=== PATIENT | female | born 2000 | race Caucasian/White ===

== ENCOUNTER 2019-04-16 19:23 | Emergency (ER) | payer BC ==
--- OUTSIDE RECORDS SUMMARY | 2019-04-16 20:17 | XMS REPORT | Continuity of Care Document ---
:2000 Author Organization [facility] Address [address] [facility] [address] [place] [address] Phone Care Team Providers Name Role Phone Regard Allison CHOWDHURY Unavailable Unavailable Allergies, Adverse Reactions, Alerts Substance Reaction Status No Known Allergies Active Medications Medication Instructions Dosage Effective Status Comments Dates (start - stop) Sarah (28) 3 1 tab by oral - Active !! Check mg-0.03 mg route every day [employer]ize tablet Pricing: BIN #: [id number] Group #: [id number] Card #: [id number] PCN:FW Sarah (28) 3 1 tab by oral - No Longer !! Check mg-0.03 mg route every day Active [facility] tablet Pricing: BIN #: [id number] Group #: [id number] Card #: [id number] PCN:FW Sarah (28) 3 1 tab by oral - No Longer !! Check mg-0.03 mg route every day Active [facility] tablet Pricing: BIN #: [id number] Group #: [id number] Card #: [id number] PCN:FW Sarah (28) 3 1 tab by oral - No Longer !! Check mg-0.03 mg route every day Active [facility] tablet Pricing: BIN #: [id number] Group #: [id number] Card #: [id number] PCN:FW EDUARDO (28) 3 take 1 tablet by 1.00 tablet - No Longer !! Check mg-0.02 mg oral route every Active FamilyWize tablet day Pricing: [employer] #: [id number] Group #: [id number] Card #: [id number] PCN:FW Provera 10 mg 1 tablet by Oral - No Longer do not fill tablet route every day Active unless pt calls for r 10 days if for the no period for 6 medication wks, period lasts > 10 days, period comes again in <21 days Problems Condition Effective Dates (start - Clinical Status Comments stop) Encntr for physician general practice exam (general) (routine) w/o abn findings Encounter for screening for infections with a predominantly sexual mode of transmission Oral contraceptive pill surveillance Excessive and frequent menstruation with regular cycle Underweight Procedures Procedure Date PREV VISIT EST AGE 18-39 Results Test Name Date and Time Measure Units Reference Range Abnormal Flag Status Comments No information Advance Directives Directive Yes / No Effective Date File Name No information Encounters Encounter Practice Location Reason(s) Diagnoses Date Provider Providers Description For Visit Copied on Encounter PREV VISIT [facility] for physician general practice Regard Referring EST AGE [facility] exam (general) 2-202 Allison. 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 White [place] pill tel: [place], tel: surveillanceExces [phone] [place], [address]. [id number] sive and frequent tel:4 menstruation with [id number] regular cycleUnderweight [facility]- Regard [facility] 1-201 Allison. Health Womens Flooring Installer 9 [address] [facility], At [address], [facility] [place] [address] [address], , [place], [place], [address], [place], [address], [place]. [place] tel: tel: [phone] [facility] Jan- Reg[facility] 1-201 Allison. Health Womens Flooring Installer 9 [facility], At [address], [address], , [place], [place], [address], [place], [address], [place]. [place] tel: tel:[phone] [facility] Nov-0 Regard [facility] 7-201 Allison. Health Womens Flooring Installer 9 [address] [facility], At [address], [address], , [place], [place], [address], [place], [address], [place]. [place] tel: tel:[phone] [facility] Jesu-0 Regard [facility] 4-201 Allison. Health Womens Flooring Installer 9 [address] [facility], At [address], [address], , [place], [place], [address], [place], [address], [place]. [place] tel: tel:[phone] [facility] Humberto-0 Regard [facility] 3-201 Allison. Health Womens Flooring Installer 9 [address] [facility], At [address], [address], , [place], [place], [address], [place], [address], [place]. [place] tel: tel:[phone] [facility] Sep-2 Regard [facility] 8-201 Allison. Health Womens Flooring Installer 7 [address] [facility], At [address], [address], , [place], [place], [address], [place], [address], [place]. [place] tel: tel:[phone] Family History Family Member Diagnosis Age At Onset No information Immunizations Vaccine Date Status Comments No information Payers Payer name Insurance type Covered democrat ID Authorization(s) No information Social History Type Description Quantity Date Captured Comments Sex Female Vital Signs Date / Height Weight BMI Pulse Blood Temperature Respiratory Body Head BMI Pulse Inhaled Time: Rate Pressure Rate Surface Circumference percentile [place] No information Chief Complaint And Reason For Visit No information Reason For Referral Reason For Referral No information Plan Of Treatment Date Type Action Status No information History Of Present Illness Encounter Date Complaint History Of Present Illness No information Functional Status Date Functional Assessment No information Medications Administered Medication Instructions Dosage Effective Dates (start - stop) Status Comments No information Instructions Date Instruction Additional Information Her ocp began Mar 2017. Related to Oral contraceptive pill surveillance Assessments Type Assessment Date No information Goals Health Concern Goal Type Priority Status Date No information Medical Equipment Description Device Ashby Device Identifier Effective Dates (start - stop ) Status No information Mental Status Date Cognitive Assessment No information Health Concerns Observation Date No information Concern Status Date No information
--- OUTSIDE RECORDS SUMMARY | 2019-04-16 20:17 | XMS REPORT | Continuity of Care Document ---
:2000 Author Organization [facility] Address [address] [facility] [address] [place] [address] Phone Care Team Providers Name Role Phone Regard Allison CHOWDHURY Unavailable Unavailable Allergies, Adverse Reactions, Alerts Substance Reaction Status No Known Allergies Active Medications Medication Instructions Dosage Effective Status Comments Dates (start - stop) Sarah (28) 3 1 tab by oral - Active !! Check mg-0.03 mg route every day [facility]ize tablet Pricing: BIN #: [id number] Group #: [id number] Card #: [id number] PCN:FW Sarah (28) 3 1 tab by oral - No Longer !! Check mg-0.03 mg route every day Active [facility] tablet Pricing: BIN #: [id number] Group #: [id number] Card #: [id number] PCN:FW Sarah (28) 3 1 tab by oral - No Longer !! Check mg-0.03 mg route every day Active [facility] tablet Pricing: BIN #: [id number] Group #: [id number] Card #: [id number] PCN:FW Sarah (28) 3 1 tab by oral - No Longer !! Check mg-0.03 mg route every day Active [facility] tablet Pricing: BIN #: [id number] Group #: [id number] Card #: [id number] PCN:FW EDUARDO (28) 3 take 1 tablet by 1.00 tablet - No Longer !! 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 [place] pill tel: [place], tel: surveillanceExces [phone] [place], [address]. [phone] sive and frequent tel:4 menstruation with [phone] regular cycleUnderweight [facility]- [facility] 1-201 Allison. Health Womens Bakery Associate 9 [address] [facility], At [address], [facility] [address], , [place], [place], [address], [place], [address], [place]. [place] tel: tel: [phone] [facility]- [facility] 1-201 Allison. Health Womens Bakery Associate 9 [address] [facility], At [address], [address], , [place], [place], [address], [place], [address], [place]. [place] tel: tel:[phone] [facility] Jesu-0 Regard [facility] 4-201 Allison. Health Womens Bakery Associate 9 [address] [facility], At [address], [facility] [address], , [place], [place], [address], [place], [address], [place]. [place] tel: tel:[phone] [facility] Humberto-0 Regard [facility] 3-201 Allison. Health Womens Bakery Associate 9 [address] [facility], At [address], [address], , [place], [place], [address], [place], [address], [place]. [place] tel: tel:[phone] [facility] Sep-2 Regard [facility] 8-201 Allison. Health Womens Bakery Associate 7 [address] [facility], At [address], , [place], [place], [address], [place], [address], [place]. [place] tel: tel:[phone] Family History Family Member Diagnosis Age At Onset No information Immunizations Vaccine Date Status Comments No information Payers Payer name Insurance type Covered republican ID Authorization(s) No information Social History Type [...] Date No information Medical Equipment Description Device [place] Device Identifier Effective Dates (start - stop ) Status No information Mental Status Date Cognitive Assessment No information Health Concerns Observation Date No information Concern Status Date No information
--- NOTE | 2019-04-16 20:30 | UC ---
Throat Pain/Nasal Ty HPI - HPI Summary HPI Summary: 2 weeks ago seen at [facility]. Negative strep and flu but given cephalexin and did feel better. Last 3 days worsening sore throat with neck swelling. - History of Current Complaint Stated Complaint: SORE THROAT Time Seen by Provider: 04/16/19 20:20 Hx Obtained From: Patient Onset/Duration: Sudden Onset, Lasting Weeks - 2, Worse Since - last 3 days Severity: Moderate Cough: None Associated Signs & Symptoms: Positive: Dysphagia - Epiglottits Risk Factors Epiglottis Risk Factors: Negative - Allergies/Home Medications Allergies/Adverse Reactions: Allergies Allergy/AdvReac Type Severity Reaction Status Date / Time No Known Allergies Allergy Verified 04/16/19 20:31 Home Medications: Home Medications Control 1 tab PO DAILY 04/16/19 [History Confirmed 04/16/19] PMH/Surg Hx/FS Hx/Imm Hx Previously Healthy: Yes - Family History Known Family History: Negative: Cardiac Disease - Social History Occupation: Student Lives: Dormitory/Roommates Review of Systems All Other Systems Reviewed And Are Negative: Yes ENT: Positive: Sore Throat Physical Exam Triage Information Reviewed: Yes Appearance: No Pain Distress, Well-Nourished, Ill-Appearing - mild Vital Signs Reviewed: Yes Eyes: Positive: Conjunctiva Clear ENT: Positive: Pharyngeal erythema, TMs normal, Tonsillar swelling, Tonsillar exudate Neck: Positive: Tenderness @ - bilateral anterior cervical, Enlarged Nodes @ - bilateral anterior cervical Respiratory Exam: Normal Cardiovascular Exam: Normal Abdominal Exam: Normal Musculoskeletal Exam: Normal Neurological Exam: Normal Psychological Exam: Normal Skin Exam: Normal Throat Pain/Nasal Course/Dx - Differential Dx/Diagnosis Differential Diagnosis/HQI/PQRI: Reagan's Angina, Peritonsillar Abscess, Pharyngitis, Tonsillitis Provider Diagnosis: Acute pharyngitis Discharge ED - Sign-Out/Discharge Documenting (check all that apply): Patient Departure All imaging exams completed and their final reports reviewed: No Studies - Discharge Plan Condition: Stable Disposition: HOME Patient Education Materials: Pharyngitis (ED) Referrals: No Primary Care Phys,NOPCP [Primary Care Provider] - - Billing Disposition and Condition Condition: STABLE Disposition: Home
[2019-04-16 20:31] VITALS: BP 122/74
[2019-04-17 10:19] LABS: ABS Basophils 0.1 10^3/ul (0-0.2); ABS Lymphocytes 0.8 10^3/ul (1.0-4.8); ABS Monocytes 1.2 10^3/ul (0-0.8); Hematocrit 35 % (35-47); Hemoglobin 11.7 g/dL (12.0-16.0); Lymphocyte % 3.8 %; Mean Corpuscular HGB Conc 33 g/dL (31-36); Mean Corpuscular Hemoglobin 29 pg (27-31); Mean Corpuscular Volume 86 fL (80-97); Mean Platelet Volume 8.3 fL (7.4-10.4); Platelet Count 253 10^3/uL (150-450); Red Blood Count 4.12 10^6 /uL (3.70-4.87); Red Cell Distribution Width 14 % (10-15); White Blood Count 22.1 10^3/uL (3.5-10.8)
--- NOTE | 2019-04-17 15:04 | UC ---
- Progress Note Progress Note: CBC with 22.1 WBC with neutrophils. Bond negative. Please call pt. If still febrile and feels worse or having trouble handling secretions - recommend going to the ED. If feeling about the same - recommend starting Augmentin. Needs recheck of CBC when feeling better (about a week preferably). Course/Dx - Diagnoses Provider Diagnoses: Acute pharyngitis Discharge ED - Sign-Out/Discharge Documenting (check all that apply): Post-Discharge Follow Up All imaging exams completed and their final reports reviewed: No Studies - Discharge Plan Condition: Stable Disposition: HOME Patient Education Materials: Pharyngitis (ED) Referrals: No Primary Care Phys,NOPCP [Primary Care Provider] - - Billing Disposition and Condition Condition: STABLE Disposition: Home
== END 2019-04-16 21:12 | disposition home or self-care (01) ==
LOC: UCEAST 19:23
DX: J02.9 Acute pharyngitis, unspecified (principal)
CPT/HCPCS: 36415; 85025; 86308; 87651; 99201; G0463

== ENCOUNTER 2019-04-17 16:28 | Emergency (ER) | payer BC ==
--- NOTE | 2019-04-17 16:41 | ED ---
Throat Pain/Nasal Congestion - HPI Summary HPI Summary: Patient complains of sore throat, MORAN, fever up to 101, decreased by mouth intake 1 day. History of same symptoms 2 weeks ago which completely improved after antibiotics. Patient stopped antibiotics 3 days ago, when symptoms returned 2 days later. Denies rash, neck stiffness, cough, CP, SOB, N/V/V abdominal pain, change in urine, change in BM. Medical history is none. - History of Current Complaint Chief Complaint: EDThroatPain Hx Obtained From: Patient Onset/Duration: Gradual Onset, Lasting Days Severity: Moderate Associated Signs And Symptoms: Positive: Dysphagia Cough: None - Allergies/Home Medications Allergies/Adverse Reactions: Allergies Allergy/AdvReac Type Severity Reaction Status Date / Time No Known Allergies Allergy Verified 04/17/19 16:37 PMH/Surg Hx/FS Hx/Imm Hx Endocrine/Hematology History: Denies: Hx Anticoagulant Therapy Cardiovascular History: Denies: Hx Pacemaker/ICD History: Denies: Hx Dialysis Sensory History: Denies: Hx Eye Prosthesis Opthamlomology History: Denies: Hx Legally Blind EENT History: Denies: Hx Deafness Infectious Disease History: No Infectious Disease History: Denies: Traveled Outside the [place] in Last 30 Days - Family History Known Family History: Negative: Cardiac Disease - Social History Alcohol Use: Occasionally Substance Use Type: Reports: None Smoking Status (MU): Never Smoked Tobacco Review of Systems Positive: Fever Eyes: Negative Positive: Sore Throat Cardiovascular: Negative Respiratory: Negative Gastrointestinal: Negative Genitourinary: Negative Musculoskeletal: Negative Skin: Negative Positive: Headache Psychological: Normal All Other Systems Reviewed And Are Negative: Yes Physical Exam Triage Information Reviewed: Yes Vital Signs On Initial Exam: Initial Vitals Temp Pulse Resp BP Pulse Ox 99.1 F 125 20 112/79 100 04/17/19 16:32 04/17/19 16:32 04/17/19 16:32 04/17/19 16:32 04/17/19 16:32 Vital Signs Reviewed: Yes Appearance: Positive: Well-Appearing Skin: Positive: Warm Head/Face: Positive: Normal Head/Face Inspection Eyes: Positive: Normal ENT: Positive: Pharyngeal erythema, TMs normal, Tonsillar swelling - Left swollen tonsil. Right normal., Uvula midline. Negative: Nasal congestion, Tonsillar exudate, Trismus, Muffled voice, Hoarse voice Neck: Positive: Supple Respiratory/Lung Sounds: Positive: Clear to Auscultation Cardiovascular: Positive: Normal Abdomen Description: Positive: Nontender Musculoskeletal: Positive: Normal Neurological: Positive: Normal Psychiatric: Positive: Normal AVPU Assessment: Alert - Christiano Coma Scale Best Eye Response: 4 - Spontaneous Best Motor Response: 6 - Obeys Commands Best Verbal Response: 5 - Oriented Coma Scale Total: 15 Procedures - Sedation Patient Received Moderate/Deep Sedation with Procedure: No Diagnostics - Vital Signs Vital Signs Temp Pulse Resp BP Pulse Ox 04/17/19 16:32 99.1 F 125 20 112/79 100 - Laboratory Result Diagrams: 04/17/19 16:54 04/17/19 16:53 Lab Statement: Any lab studies that have been ordered have been reviewed, and results considered in the medical decision making process. EENT Course/Dx - Course Course Of Treatment: Patient complains of sore throat, MORAN, fever up to 101, decreased by mouth intake 1 day. History of same symptoms 2 weeks ago which completely improved after antibiotics. Patient stopped antibiotics 3 days ago, when symptoms returned 2 days later. Denies rash, neck stiffness, cough, CP, SOB, N/V/V abdominal pain, change in urine, change in BM. Medical history is none. Tachycardic 125. Vital signs otherwise within normal limits. Patient seen at urgent care yesterday, was mono negative, strep negative, flu negative. Patient was advised to come to the ED today due to elevated white count from labs drawn at urgent care. White count of 21. Patient states her left tonsil is always swollen when she is ill. Due to history of perpetual swelling of left tonsil, no I&D or CT imaging was done of swollen left tonsil. White count today improved from yesterday. Patient opted to defer CT at this time for stronger antibiotics. Understands she will return if symptoms worsen. - Diagnoses Provider Diagnoses: Pharyngitis Discharge ED - Sign-Out/Discharge Documenting (check all that apply): Patient Departure - Discharge Plan Condition: Stable Disposition: HOME Prescriptions: Amoxicillin/Clavulanate TAB* [Augmentin TAB 875*] 875 mg PO BID #20 tab Lidocaine 2% VISCOUS* [Xylocaine 2% Viscous*] 15 ml SWISH SPIT Q6H PRN #1 btl PRN Reason: Pain - Moderate Patient Education Materials: Pharyngitis (ED) Referrals: No Primary Care Phys,NOPCP [Medical Doctor] - Additional Instructions: Take Augmentin twice a day as directed. Use lidocaine as directed for sore throat pain. Alternate ibuprofen 400 mg with Tylenol 650 mg every 3 hours for sore throat pain and potential fever control. Drink plenty of fluids to maintain hydration. Follow-up with primary care. Return to the ED for any new or worsening symptoms. - Billing Disposition and Condition Condition: STABLE Disposition: Home
[2019-04-17] MEDS ORDERED: Lidocaine 2% VISCOUS* 15 ML UDC PO ONE (16:49)
[2019-04-17 17:04] LABS: ABS Lymphocytes 1.7 10^3/ul (1.0-4.8); ABS Monocytes 1.2 10^3/ul (0-0.8); ABS Neutrophils 15.6 10^3/ul (1.5-7.7); Eosinophil % 0.1 %; Hematocrit 36 % (35-47); Hemoglobin 12.3 g/dL (12.0-16.0); Mean Corpuscular HGB Conc 34 g/dL (31-36); Mean Corpuscular Hemoglobin 29 pg (27-31); Mean Corpuscular Volume 85 fL (80-97); Mean Platelet Volume 7.8 fL (7.4-10.4); Nucleated Red Blood Cells % 0.1; Platelet Count 254 10^3/uL (150-450); Red Blood Count 4.29 10^6 /uL (3.70-4.87); Red Cell Distribution Width 14 % (10-15); White Blood Count 18.6 10^3/uL (3.5-10.8)
[2019-04-17 17:17] LABS: Urine Appearance Cloudy; Urine Bilirubin Negative (Negative); Urine Blood Negative (Negative); Urine Color Amber; Urine Glucose Negative (Negative); Urine Ketones Trace (Negative); Urine Nitrite Negative (Negative); Urine Protein 2+(100 mg/dL) (Negative); Urine Specific Gravity 1.027 (1.010-1.030); Urine Urobilinogen Negative (Negative)
[2019-04-17 17:20] LABS: ALT 6 U/L (7-52); AST 12 U/L (13-39); Albumin 4.8 g/dL (3.2-5.2); Albumin/Globulin Ratio 1.2 (1-3); Alkaline Phosphatase 68 U/L (34-104); Anion Gap 13 mmol/L (2-11); BUN/Creatinine Ratio 18.3 (8-20); Blood Urea Nitrogen 20 mg/dL (6-24); CO2 Carbon Dioxide 24 mmol/L (22-32); Calcium 9.7 mg/dL (8.6-10.3); Chloride 99 mmol/L (101-111); EGFR African American 78.2 (>60); EGFR Non-African American 64.7 (>60); Globulin 4.1 g/dL (2-4); Glucose 85 mg/dL (70-100); Potassium 3.3 mmol/L (3.5-5.0); Rapid Strep Molecular Negative (Negative); Sodium 136 mmol/L (135-145); Total Protein 8.9 g/dL (6.4-8.9)
[2019-04-17 17:21] LABS: Influenza A Molecular Negative (Negative); Influenza B Molecular Negative (Negative)
[2019-04-17 17:27] LABS: HCG Pregnancy < 0.60 mIU/mL
[2019-04-17 17:27] LABS: Urine Bacteria Absent (Absent); Urine Red Blood Cell Trace(0-2/hpf) (Absent); Urine Squamous Epithelial Cell Present (Absent); Urine White Blood Cell 2+(11-20/hpf) (Absent)
[2019-04-17] MEDS ORDERED: Amoxicillin/Clavulanate TAB* 875 MG PO ONE (17:48)
[2019-04-17] MEDS ORDERED: Potassium Chlor TAB* 20 MEQ TAB.ER PO ONE (17:48)
[2019-04-17 18:20] VITALS: BP 115/72
== END 2019-04-17 18:20 | disposition home or self-care (01) ==
LOC: ED 16:28
DX: J02.9 Acute pharyngitis, unspecified (principal); R51 Headache; R50.9 Fever, unspecified
CPT/HCPCS: 36415; 80053; 81003; 81015; 83605; 84702; 85025; 87040; 87086; 87651; 99283; A9270-GY